=== PATIENT | female | born 2000 | race Caucasian/White ===

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

== ENCOUNTER 2019-04-25 19:40 | Inpatient (IN) | payer MEDICAID, OTHER, SELFPAY ==
[~2019-04-25] VITALS: Ht 170.2 cm; Wt 81.2 kg
[~2019-04-25 19:40] MED LIST changes: +RALT40TA PO; +TRUVTAB PO
[2019-04-25 20:12] LABS: HEMATOCRIT 34.6 % (36.0-47.0); HEMOGLOBIN 11.1 g/dl (12.0-15.5); MEAN CORPUSCULAR HEMOGLOBIN 25.9 pg (27.0-33.0); MEAN CORPUSCULAR HGB CONC 32.1 g/dl (32.0-36.5); MEAN CORPUSCULAR VOLUME 80.8 fl (80.0-96.0); PLATELET COUNT, AUTOMATED 299 10^3/uL (150-450); RED BLOOD COUNT 4.28 10^6/uL (4.00-5.40); WHITE BLOOD COUNT 6.1 10^3/uL (4.0-10.0)
[2019-04-25 20:24] LABS: HCG, SERUM QUALITATIVE NEGATIVE (NEGATIVE)
[2019-04-25] MEDS ORDERED: LORazepam 2 MG/ML VIAL (J2060) IM ONE (20:30)
[2019-04-25] MEDS ORDERED: HALOPERIDOL 5 MG/ML VIAL (J1630) IM ONE (20:30)
[2019-04-25] MEDS ORDERED: diphenhydrAMINE INJ 50MG/ML VIAL (J1200) IM ONE (20:30)
[2019-04-25 20:43] LABS: ACETAMINOPHEN LEVEL < 2.0 UG/ML (10.0-30.0); ALBUMIN 3.7 GM/DL (3.2-5.2); ALT/SGPT 16 U/L (12-78); BILIRUBIN,DIRECT 0.1 MG/DL (0.0-0.2); BILIRUBIN,TOTAL 0.3 MG/DL (0.2-1.0); BLOOD UREA NITROGEN 16 MG/DL (7-18); CALCIUM LEVEL 8.3 MG/DL (8.5-10.1); CARBON DIOXIDE LEVEL 24 MEQ/L (21-32); CHLORIDE LEVEL 110 MEQ/L (98-107); CREATININE FOR GFR 0.98 MG/DL (0.55-1.30); ETHYL ALCOHOL (ETHANOL) < 0.003 % (0.000-0.010); GLUCOSE, FASTING 97 MG/DL (70-100); SALICYLATE LEVEL 1.8 MG/DL (5.0-30.0); SODIUM LEVEL 140 MEQ/L (136-145); THYROID STIMULATING HORMONE 0.999 uIU/ML (0.463-3.98); TOTAL PROTEIN 6.7 GM/DL (6.4-8.2)
[2019-04-25 20:46] LABS: AMPHETAMINES LEVEL URINE NEGATIVE (NEGATIVE); BARBITURATES URINE NEGATIVE (NEGATIVE); BENZODIAZEPINES URINE NEGATIVE (NEGATIVE); CANNABINOIDS URINE NEGATIVE (NEGATIVE); COCAINE METABOLITE URINE NEGATIVE (NEGATIVE); METHADONE URINE NEGATIVE (NEGATIVE); OPIATES URINE NEGATIVE (NEGATIVE); PHENCYCLIDINE URINE NEGATIVE (NEGATIVE)
[2019-04-25] MEDS ORDERED: NS 1,000 ML IV ONE (22:45)
[2019-04-26 01:16] LABS: ACETAMINOPHEN LEVEL < 2.0 UG/ML (10.0-30.0); SALICYLATE LEVEL < 1.7 MG/DL (5.0-30.0)
--- NOTE | 2019-04-26 07:44 | ECGEPIP ---
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
[2019-04-26] MEDS ORDERED: MOM 30ML SUSPENSION UDC PO PRN (12:15)
[2019-04-26] MEDS ORDERED: ACETAMINOPHEN TAB 650MG DOSE (2X325MG) PO PRN (12:15)
[2019-04-26] MEDS ORDERED: traZODone 50 MG TAB PO PRN (12:15)
[2019-04-26] MEDS ORDERED: MAALOX 30 ML SUSP *UDC PO PRN (12:15)
[2019-04-26 13:58] VITALS: BP 143/74
[2019-04-26] MEDS: NICOTINE 21MG/24HR 1 EA TRANSDERMAL TD SCH (14:46)
[2019-04-27 06:25] VITALS: BP 111/67
[2019-04-27] MEDS: NICOTINE 21MG/24HR 1 EA TRANSDERMAL TD SCH (09:05)
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
[2019-04-27] MEDS ORDERED: LORazepam 2 MG TAB PO PRN (10:45)
--- NOTE | 2019-04-27 16:45 | HPEPDOC ---
[facility] Medical History & Physical Date of Admission Apr 27, 2019 Date of Service: Apr 27, 2019 History and Physical CHIEF COMPLAINT: Medication overdose HISTORY OF PRESENT ILLNESS: Patient's a 19-year-old female with past medical history of bipolar disorder was brought in by EMS for reported overdose. Patient stated that she was starting with her mom and told her that she was suicidal and took 24 ibuprofen even though she only took two. She denies any complaints and states that she is not suicidal, only saying it to test her mom. Shewas prescribed ibuprofen because of a uterine infection she developed after having her child 9 months prior. PAST MEDICAL HISTORY: Refer to [facility] PAST SURGICAL HISTORY: None SOCIAL HISTORY: Smoke 3ppd. Denies alcohol. +marijuna use. FAMILY HISTORY: Mother- Rheumatoid arthritis, CAD ALLERGIES: Please see below. REVIEW OF SYSTEMS: 10 point review of system negative except as stated in HPI HOME MEDICATIONS: Please see below. PHYSICAL EXAMINATION: General: No acute distress, Alert Eyes: Normal sclera, EOMI, BAM HENT: Atraumatic, neck supple, moist mucous membranes Cardiovascular: Normal rate, normal rhythm. No murmurs appreciated. Pulmonary: Clear to auscultation b/l, no wheezing GI: Soft, nontender, nondistended Skin: Warm and dry Neuro: CN grossly intact. No focal deficits. Strengths equal b/l. Psych: oriented x 3 LABORATORY DATA: See below. MICROBIOLOGY: Please see below. ASSESSMENT AND PLAN: 1. Drug overdose - Reportedly only a threat but did not take anything other than 2 ibuprofen. - Unsure if that was true but no significant abnormalities noted on bloodwork. - Normal kidney functions. - Repeat BMP ordered for tomorrow, likely with no changes. If kidney function significantly worsens, will recommend IVF resuscitation and will following along. - Otherwise will sign off. Please call again if needed assistance with any medical needs. - EKG with no ischemic changes, Qtc <450. 2. Suicidal ideation - Reportedly did not and does not have any. - Defer to psych for evaluation and treatment. 3. Active smoker - Offer nicotine patch if patient wants to use. - 3ppd smoker. Vital Signs Vital Signs Date Time Temp Pulse Resp B/P (MAP) Pulse Ox O2 Delivery O2 Flow Rate FiO2 04/27/19 06:25 98.9 76 18 111/67 (82) 04/26/19 13:58 97 04/26/19 13:27 Room Air Home Medications No Active Prescriptions or Reported Meds Allergies Coded Allergies: atomoxetine (Verified Allergy, Unknown, 04/25/19) clonidine (Verified Allergy, Unknown, 04/25/19) methylphenidate (Verified Allergy, Unknown, 04/25/19) trazodone (Verified Allergy, Unknown, 04/25/19) valproic acid (Verified Allergy, Unknown, 04/25/19) A-FIB/CHADSVASC A-FIB History Current/History of A-Fib/PAF?: No MITCHELL REED MD Apr 27, 2019 16:45
[2019-04-27 17:37] VITALS: BP 112/68
[2019-04-27] MEDS ORDERED: PREPARATION H OINTMENT (HEMORRHOID) PR PRN (18:45)
[2019-04-27] MEDS: DOCUSATE SODIUM 100 MG CAP PO SCH (21:00)
[2019-04-28 06:34] VITALS: BP 125/66
[2019-04-28] MEDS: NICOTINE 21MG/24HR 1 EA TRANSDERMAL TD SCH (08:35)
[2019-04-28] MEDS: DOCUSATE SODIUM 100 MG CAP PO SCH ×2 (08:36→21:00)
--- NOTE | 2019-04-28 09:59 | MHIPNPDOC ---
[facility] Progress Note Progress Note DATE OF SERVICE: 04/28/19 HISTORY: Patient is a 19 -year-old , female, with a history of bipolar d/o and previous admission [facility] November 2016 for depression who was brought to ED by police after pt's mother called them after pt text her that she OD on 24 ibuprofen and later found by PD walking on [address] and reported by ED told them "Fuck off, as in, there are worse things I could say to you." Per ED, once pt arrived she had to be put in 4-point restraints after a sudden violent outburst and pt "sprinting into the hallway of the ED trying to forcibly break thru EMS doors." Per ED, it took over 10 staff members to restrain the pt due to her kicking pouching, and spitting on staff and once in restraints continued to thrash, kick, and spit on staff. Pt eventually called down and feel asleep. Did at one time ask to speak with her case management director per ED. VITAL SIGNS: See below. NEW TEST RESULTS: See below CURRENT MEDICATIONS: See below. MENTAL STATUS EXAMINATION: General Appearance: well groomed, appears stated age, hospital scrubs/clothing Build: overweight Demeanor: average, other (nonchalant) Eye Contact: average Activity: average Behavior: cooperative Speech: clear, spontaneous, normal volume, reg/rate,rhythm,volume Mood: euthymic, full range Mood "fine" Affect: full, congruent Thought Process: logical/linear, other (defensive) Thought Content (Delusions): denies SI, HI, AVH (poor impulse control potentially leading to risk of being harm to herself or others) Thought Content (Other): none reported, appropriate Thought Content (Aggressive): none reported Perception (Hallucinations): none reported Perception (Other): none reported Cognition (Impairment of): none reported Cognition(Intelligence Est.): average Oriented: Awake, Alert, Oriented times three Insight: fair Judgment: fair Psychosis: Denies DIAGNOSES: 1. Depression unspecified 2. PTSD by history 3. borderline personality d/o 4. cannabis use d/o ASSESSMENT:Pt seen and states that her mood is better and denies SI. States she filled out her safety plan regarding her stressors, future goals, coping mechanisms, and emergency contacts. Asking if she can wear some of her make-up as "I feel naked w/o it" and told that it is a unit policy and exceptions cannot be made. Stated ok. States she's being social on the milieu which is beneficial. States she slept well last night. She has been behaviorally appropriate since being on the unit. She is attending groups and finding them helpful. She denies SI/HI, hallucinations, delusions. Pt feels safe here. MANAGEMENT PLAN:D/c back to halfway tomorrow. Medications: ativan 2mg q6hr prn anxiety/agitation TIME SPENT: 30 minutes. Vital Signs Vital Signs Date Time Temp Pulse Resp B/P (MAP) Pulse Ox O2 Delivery O2 Flow Rate FiO2 04/28/19 06:34 97.3 82 12 125/66 (85) 04/26/19 13:58 97 04/26/19 13:27 Room Air Current Medications Current Medications Medications (Trade) Dose Ordered Sig/Mee Route PRN Reason Start Time Stop Time Status Last Admin Dose Admin Acetaminophen (Tylenol Tab) 650 mg Q6HP PRN PO HEADACHE or DISCOMFORT 04/26/19 12:15 04/27/19 23:44 Al Hydrox/Mg Hydrox/Simethicone (Mylanta) 30 ml Q4HP PRN PO HEARTBURN/INDIGESTION 04/26/19 12:15 Docusate Sodium (Colace) 100 mg BID PO 04/27/19 21:00 Home Med (Med Rec Complete!) ASDIRECTED XX 04/26/19 08:30 04/26/19 08:30 DC Lorazepam (Ativan) 2 mg Q6HP PRN PO ANXIETY/AGITATION 04/27/19 10:45 Magnesium Hydroxide (Milk Of Magnesia) 30 ml DAILYPRN PRN PO CONSTIPATION 04/26/19 12:15 04/27/19 17:45 Nicotine (Nicoderm Cq 21mg) 1 patch DAILY TD 04/26/19 09:00 04/28/19 08:35 Phenyleph/Shark Oil/Min Oil/Petrol (Preparation H Ointment) 1 dose QIDP PRN OK ITCHING 04/27/19 18:45 Trazodone HCl (Desyrel) 50 mg QHSP PRN PO INSOMNIA 04/26/19 12:15 UNV Allergies Coded Allergies: atomoxetine (Verified Allergy, Unknown, 04/25/19) clonidine (Verified Allergy, Unknown, 04/25/19) methylphenidate (Verified Allergy, Unknown, 04/25/19) trazodone (Verified Allergy, Unknown, 04/25/19) valproic acid (Verified Allergy, Unknown, 04/25/19) BRAYAN MCCULLOUGH DO Apr 28, 2019 9:59 am
[2019-04-28 10:23] LABS: BLOOD UREA NITROGEN 10 MG/DL (7-18); CALCIUM LEVEL 8.9 MG/DL (8.5-10.1); CARBON DIOXIDE LEVEL 30 MEQ/L (21-32); CHLORIDE LEVEL 106 MEQ/L (98-107); CREATININE FOR GFR 1.05 MG/DL (0.55-1.30); GLUCOSE, FASTING 71 MG/DL (70-100); POTASSIUM SERUM 4.3 MEQ/L (3.5-5.1); SODIUM LEVEL 140 MEQ/L (136-145)
[2019-04-28 16:39] VITALS: BP 120/58
[2019-04-29 06:45] VITALS: BP 105/59
[2019-04-29] MEDS: DOCUSATE SODIUM 100 MG CAP PO SCH (08:47)
[2019-04-29] MEDS: NICOTINE 21MG/24HR 1 EA TRANSDERMAL TD SCH (08:48)
--- NOTE | 2019-04-29 09:27 | MHDSPDOC ---
[facility] Discharge Summary Discharge Summary DATE OF ADMISSION: Apr 26, 2019 at 12:15 pm DATE OF DISCHARGE: Apr 29, 2019 DISCHARGE DIAGNOSES: 1. Depression unspecified 2. PTSD by history 3. borderline personality d/o 4. cannabis use d/o REASON FOR ADMISSION: Patient is a 19 -year-old , female, with a history of bipolar d/o and previous admission [facility] November 2016 for depression who was brought to ED by police after pt's mother called them after pt text her that she OD on 24 ibuprofen and later found by PD walking on [address] and reported by ED told them "Fuck off, as in, there are worse things I could say to you." Per ED, once pt arrived she had to be put in 4-point restraints after a sudden violent outburst and pt "sprinting into the hallway of the ED trying to forcibly break thru EMS doors." Per ED, it took over 10 staff members to restrain the pt due to her kicking pouching, and spitting on staff and once in restraints continued to thrash, kick, and spit on staff. Pt eventually called down and feel asleep. 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 CONSULTANTS INVOLVED: none TREATMENT AND PROGRESS ON THE UNIT : Pt was admitted to [facility], seen for psychiatric assessment and declined starting any medications preferring to do therapy groups as treatment instead. She was provided ativan 2mg q6hr prn anxiety and trazodone 50mg qhs prn insomnia. She was fully cooperative and behaviorally appropriate during her stay. She appeared euthymic and bright. She attended groups daily during her stay. Her symptoms improved with treatment. On day of discharge she denied depression, anxiety, insomnia, SI/HI, hallucinations, delusions. She was discharged back to the alf where she has been living with follow-up at [facility]. She felt safe for discharge. DISCHARGE ASSESSMENT: Pt seen and states that her mood is "good," is looking forward to going home, and denies SI. per yesterday, "States she filled out her safety plan regarding her stressors, future goals, coping mechanisms, and emergency contacts." States she's being social on the milieu which is benefic ial. States she slept well last night. She has been behaviorally appropriate since being on the unit. She is attending groups and finding them helpful. She denies depression, anxiety, insomnia, SI/HI, hallucinations, delusions. Pt feels safe to be discharged back to the alf today. MENTAL STATUS EXAMINATION ON DISCHARGE: General Appearance: well groomed, appears stated age, own clothing Build: overweight Demeanor: average Eye Contact: average Activity: average Behavior: cooperative Speech: clear, spontaneous, normal volume, reg/rate,rhythm,volume Mood: euthymic, full range Mood "good" Affect: full, congruent Thought Process: logical/linear Thought Content (Delusions): denies SI, HI, AVH Thought Content (Other): none reported, appropriate Thought Content (Aggressive): none reported Perception (Hallucinations): none reported Perception (Other): none reported Cognition (Impairment of): none reported Cognition(Intelligence Est.): average Oriented: Awake, Alert, Oriented times three Insight: good Judgment: good Psychosis: Denies MEDICATIONS ON DISCHARGE: none (declined starting any) PLAN/FOLLOWUP ARRANGEMENTS: D/c back to alf with follow-up at [facility]. The amount of time spent in the coordination of care for this patient was approximately 30 minutes. Vital Signs/I&Os Vital Signs Date Time Temp Pulse Resp B/P (MAP) Pulse Ox O2 Delivery O2 Flow Rate FiO2 04/29/19 06:45 98.6 69 12 105/59 (74) 04/26/19 13:58 97 04/26/19 13:27 Room Air Laboratory Data Labs 24H Laboratory Tests 2 04/28/19 09:33: Anion Gap 4L, Blood Urea Nitrogen 10, Creatinine 1.05, Sodium Level 140, Potassium Level 4.3, Chloride Level 106, Carbon Dioxide Level 30, Calcium Level 8.9 CBC/BMP Laboratory Tests 04/28/19 09:33 Calcium Level 8.9 Medications No Active Prescriptions or Reported Meds Allergies Coded Allergies: atomoxetine (Verified Allergy, Unknown, 04/25/19) clonidine (Verified Allergy, Unknown, 04/25/19) methylphenidate (Verified Allergy, Unknown, 04/25/19) trazodone (Verified Allergy, Unknown, 04/25/19) valproic acid (Verified Allergy, Unknown, 04/25/19) BRAYAN MCCULLOUGH DO Apr 29, 2019 9:27 am
[2019-04-30 13:45] LABS: HEPATITIS B SURFACE ANTIGEN NEGATIVE (NEGATIVE)
== END 2019-04-29 15:45 | disposition home or self-care (01) | DRG 754 ==
LOC: M ED 19:40 → M ED INP 04-26 12:15 → M PSY 04-26 13:50
PROVIDERS: ADMIT Psychiatry & Neurology Psychiatry; ATTEND Psychiatry & Neurology Psychiatry
DX: F32.9 Major depressive disorder, single episode, unspecified (principal); R45.851 Suicidal ideations; F43.10 Post-traumatic stress disorder, unspecified; F12.90 Cannabis use, unspecified, uncomplicated; F60.3 Borderline personality disorder; Z88.8 Allergy status to other drugs, medicaments and biological substances; F17.200 Nicotine dependence, unspecified, uncomplicated

== ENCOUNTER 2021-08-14 01:04 | Emergency (ER) | payer MEDICAID, SELFPAY ==
[~2021-08-14] VITALS: Ht 172.7 cm; Wt 97.7 kg
[~2021-08-14 01:04] MED LIST changes: +EMTR1TAB16 PO; -TRUVTAB PO
[2021-08-14] MEDS ORDERED: ONDANSETRON 4MG/2ML VIAL IV ONE (02:30)
[2021-08-14] MEDS ORDERED: MORPHINE 4 MG/ML 1ML VIAL/SYRINGE (J2270) IV PRN (02:30)
[2021-08-14 02:44] LABS: BASO % 0.3 % (0.0-1.0); EOS # 0.1 10^3/uL (0.0-0.5); EOS % 0.5 % (0.0-3.0); HEMATOCRIT 40.2 % (36.0-47.0); HEMOGLOBIN 13.2 g/dl (12.0-15.5); LYMPH # 1.5 10^3/uL (1.5-5.0); LYMPH % 13.6 % (24.0-44.0); MEAN CORPUSCULAR HEMOGLOBIN 28.1 pg (27.0-33.0); MEAN CORPUSCULAR HGB CONC 32.8 g/dl (32.0-36.5); MEAN CORPUSCULAR VOLUME 85.7 fl (80.0-96.0); MONO # 0.6 10^3/uL (0.0-0.8); MONO % 5.4 % (2.0-8.0); NEUTROPHILS # 8.8 10^3/uL (1.5-8.5); NEUTROPHILS % 79.9 % (36.0-66.0); PLATELET COUNT, AUTOMATED 313 10^3/uL (150-450); RED BLOOD COUNT 4.69 10^6/uL (4.00-5.40)
[2021-08-14 02:57] LABS: BLOOD UREA NITROGEN 13 MG/DL (7-18); CALCIUM LEVEL 8.5 MG/DL (8.5-10.1); CARBON DIOXIDE LEVEL 26 MEQ/L (21-32); CHLORIDE LEVEL 109 MEQ/L (98-107); CREATININE FOR GFR 0.88 MG/DL (0.55-1.30); GLOMERULAR FILTRATION RATE > 60.0 (>60); GLUCOSE, FASTING 107 MG/DL (70-100); POTASSIUM SERUM 3.8 MEQ/L (3.5-5.1); SODIUM LEVEL 142 MEQ/L (136-145)
[2021-08-14 03:00] LABS: HCG, SERUM QUALITATIVE NEGATIVE (NEGATIVE)
[2021-08-14] MEDS ORDERED: BOOSTRIX/ADACEL VACCINE (DIPHTH/PERTUSS/ACELL/TETANUS) 0.5ML SYR IM ONE (04:00)
[2021-08-14] MEDS ORDERED: ceFAZolin SOD 2 GM in IV 1 EA IV ONE (04:00)
[2021-08-14 04:45] VITALS: BP 133/87
== END 2021-08-14 04:58 | disposition short-term general hospital (02) ==
LOC: M ED 01:04
DX: S02.32XA Fracture of orbital floor, left side, initial encounter for closed fracture (principal); S01.419A Laceration without foreign body of unspecified cheek and temporomandibular area, initial encounter; F32.89 Other specified depressive episodes; F41.8 Other specified anxiety disorders; F17.200 Nicotine dependence, unspecified, uncomplicated; Y04.8XXA Assault by other bodily force, initial encounter; Y92.009 Unspecified place in unspecified non-institutional (private) residence as the place of occurrence of the external cause; Y93.9 Activity, unspecified; Y99.9 Unspecified external cause status
CPT/HCPCS: 70450; 70486; 72125; 80048; 84703; 85025; 90471; 90715; 96365; 96375; 99285; J0690; J2270; J2405